=== PATIENT | female | born 1955 | race Caucasian/White ===

== ENCOUNTER → 2021-05-17 16:21 | Outpatient (BNVA) | payer MEDICARE, SELFPAY | PROVIDERS: Family Provider Family Medicine; PCP Family Medicine; Visit Provider Family Medicine | DX: Z13.9 Encounter for screening, unspecified (principal); H93.90 Unspecified disorder of ear, unspecified ear; R68.2 Dry mouth, unspecified | CPT/HCPCS: 36415; 85651; 86160; 86162; 86235; 86255; 86376 ==

== ENCOUNTER → 2022-07-02 17:33 | Outpatient (BNVA) | payer MEDICARE, SELFPAY | PROVIDERS: Family Provider Family Medicine; PCP Family Medicine; Visit Provider Nurse Practitioner Family | DX: M79.89 Other specified soft tissue disorders (principal); M10.9 Gout, unspecified | CPT/HCPCS: 84550 ==

== ENCOUNTER → 2022-07-04 14:14 | Outpatient (BNVA) | payer MEDICARE, SELFPAY | PROVIDERS: Family Provider Family Medicine; PCP Family Medicine; Visit Provider Nurse Practitioner Family | DX: M79.89 Other specified soft tissue disorders (principal) | CPT/HCPCS: 73630 ==

== ENCOUNTER 2024-03-14 08:28 | Observation (INO) | payer MEDICARE, SELFPAY ==
[2024-03-14] VITALS (17 sets, daily range): BP systolic 79–115; BP diastolic 35–76; PULSE 89–119; RESP 12–19; TEMP 36.4–36.8; O2SAT 98–100; BMI 21.6
--- NOTE | 2024-03-14 08:32 | ECG_ITS ---
[facility] Test Date: 2024-03-14 Pat Name: Melissa De Leon Department: Room: Gender: Female [employer]it [employer]s [employer]her: : 1955 Requested By: Sony Ulloa Order Number: [id number] Denisse MD: Tam Brar M.D. Measurements Intervals [place] Rate: 94 P: 91 CT: 136 QRS: 75 QRSD: 80 T: 81 QT: 345 QTc: 433 Interpretive Statements SINUS RHYTHM INDETERMINATE AXIS No previous ECG available for comparison Electronically Signed On 03-15-2024 12:23:27 CDT by Tam Brar M.D. [id number]
[2024-03-14 08:58] LABS: Basophils % 0.4 %; Eosinophils # 0.1 10^3/uL (0.0-0.8); Eosinophils % 0.7 %; Hematocrit 24.5 % (36-47); Lymphocytes # 2.4 10^3/uL (0.8-4.8); Lymphocytes % 25.6 %; Mean Corpuscular HGB Conc 33.9 g/dL (30-55); Mean Corpuscular Hemoglobin 31.1 pg (27-33); Mean Corpuscular Volume 91.8 fl (85-98); Mean Platelet Volume 9.7 fL (7.4-10.4); Monocytes # 0.7 10^3/uL (0.2-0.9); Monocytes % 7.2 %; Neutrophils # 6.15 10^3/uL (1.8-7.7); Neutrophils % 65.7 %; Nucleated Red Blood Cells % 0 %; Platelet Count 157 10^3/cmm (157-399); Red Blood Count 2.67 10^6/uL (3.85-5.65); Red Cell Distribution Width 14.5 % (12.1-15.1); White Blood Count 9.37 10^3/uL (3.29-11.43)
[2024-03-14 09:15] LABS: Alanine Aminotransferase 15 U/L (0-33); Albumin Level 3.7 g/dL (3.5-5.2); Alkaline Phosphatase 52 U/L (35-105); Anion Gap 14.5 (5-19); Aspartate Amino Transferase 17 U/L (0-32); Blood Urea Nitrogen 35 mg/dL (8-23); Calcium 8.7 mg/dL (8.5-10.5); Carbon Dioxide 20 mmol/L (22-29); Chloride 104 mmol/L (98-107); Creatinine Clr Calc Pharmacy 50.9601; Globulin 2.6 g/dL (1.3-4.6); Glucose 99 mg/dL (65-115); Osmolality Calculated 288 mOsm/kg (285-295); Potassium 3.5 mmol/L (3.5-5.1); Sodium 135 mmol/L (136-145); Total Bilirubin 0.6 mg/dL (0.15-1.2); Total Protein 6.3 g/dL (6.6-8.7)
--- NOTE | 2024-03-14 10:00 | PC.PHAR ---
PT STATES THE ONLY PRESCRIPTION MEDICATION SHE TAKES IS SUMATRIPTAN PRN-PT STATES SHE TAKES ALL THE OTC MEDS ENTERED -
--- NOTE | 2024-03-14 10:11 | ED_ITS ---
HPI - Dizziness 2 General: Chief Complaint: Dizziness Stated Complaint: dizzy Time Seen by Provider: 03/14/24 08:32 History of Present Illness: HPI Narrative: 68-year-old female who is only medical h istory is migraines who presents the emergency room with dizziness/lightheadedness for the last 2 days. She says yesterday she was extremely tired and could not go for a walk. She says she normally walks 5 hilly miles a day briskly and she could not. She says she gets so lightheaded when she stands up her 's and having to help her to the bathroom. She says she takes NSAIDs for her headaches quite frequently which would cause her to have upset stomach so she has been taking Pepto-Bismol which she thought might turn her stools black. She has been having black stools for few days now. No dysuria. No chest pain. Currently with no abdominal pain. No fevers. No cough. Blood pressure soft on presentation and Ortho's are positive. Review of Systems 2 Narrative: Constitutional symptoms: Negative except as documented in HPI. Skin symptoms: Negative except as documented in HPI. Eye symptoms: Negative except as documented in HPI. ENMT symptoms: Negative except as documented in HPI. Respiratory symptoms: Negative except as documented in HPI. Cardiovascular symptoms: Negative except as documented in HPI. Gastrointestinal symptoms: Negative except as documented in HPI. Genitourinary symptoms: Negative except as documented in HPI. Musculoskeletal symptoms: Negative except as documented in HPI. Neurologic symptoms: Negative except as documented in HPI. Psychiatric symptoms: Negative except as documented in HPI. Endocrine symptoms: Negative except as documented in HPI. PFSH ED 2 PFSH: Social History Smoking and tobacco/nicotine status: never used tobacco/nicotine Alcohol intake: current Alcohol intake frequency: holidays/special occasions only Current occupation: retired Physical Exam 2 Narrative: EXAM NARRATIVE: General: Alert, no acute distress. Skin: Warm, dry. Head: Normocephalic, atraumatic. Neck: Supple, trachea midline. Eye: Extraocular movements are intact. Ears, nose, mouth and throat: mucosa moist. Cardiovascular: Regular, Normal peripheral perfusion. Respiratory: Lungs are clear to auscultation, respirations are non-labored, breath sounds are equal, Symmetrical chest wall expansion. Gastrointestinal: Soft, Nontender, Non distended, Normal bowel sounds. Musculoskeletal: Normal ROM, no deformity. Neurological: Alert and oriented, No focal neurological deficit observed. Psychiatric: Cooperative, appropriate mood & affect. Course 2 Vital Signs: Vital signs: Vital Signs Temperature 97.9 F 03/14/24 08:35 Pulse Rate 89 03/14/24 09:27 Respiratory Rate 16 03/14/24 08:35 Blood Pressure 97/45 03/14/24 09:27 Pulse Oximetry 99 03/14/24 08:35 Oxygen Delivery Me thod Room Air 03/14/24 08:35 MDM - Dizziness Medical Decision Making Medical decision making: Differential diagnosis for patient presenting with generalized weakness including but not limited to and based on the above HPI, review of systems and physical exam: Sepsis. Dehydration. Renal failure. Electrolyte abnormalities. Anemia. Congestive heart failure. Hypotension. Coronary syndrome. Hepatitis. Cirrhosis. Infections such as pneumonia, urinary tract infection, Tick bourne illness, Cellulitis, Viral infections including influenza and Covid-19. Workup: labwork and lab/exam driven imaging ordered to evaluate, rule in and rule out above pathologies. EKG: Time 845 rate 94 normal sinus rhythm, No ST-T changes, no ectopy, normal MD & QRS intervals, This was reviewed and interpreted by ER physician at 849. Lab Review: Laboratory results were reviewed and interpreted by myself the emergency room physician. Patient has a hemoglobin of 8. BUN and creatinine are 35 and 1. This all points towards acute blood loss anemia and an upper GI bleed. Particularly given her history. She is quite symptomatic and although she is not under 7 at this point feel like she is lost likely a considerable amount of blood and 2 units of packed reds are being ordered. Consultation: General surgery: Dr. Tyler. Recommends TXA now and 1 hour. NPO. Agrees with Protonix. Transfusion. I reviewed the patient's medical record. Reexamination: Patient remains soft on her blood pressure. MAP just below 60. But is now being transfused. No increased work of breathing. No altered mental status. No focal motor deficits. Assessment and plan: Acute upper GI bleeding Acute blood loss anemia Hypotension NSAID use Likely peptic ulcer -1 L normal saline bolus secondary to hypotension -80 mg IV Protonix -2 units packed red blood cells -TXA being administered -General surgery consult for endoscopy -I discussed the patient with the hospitalist on-call who is admitting the patient. - Discussed findings and plan with patient. Answered any questions. - All laboratory values were reviewed and interpreted personally by myself, the ER physician - All imaging was reviewed and interpreted personally by myself, the ER physician. - Evaluation and treatment of this problem were appropriate in the emergency setting -I spent a total of >35 minutes of critical care time managing the patient, independent of any other practitioner. -The time involved in the performance of separately reportable procedures was not counted towards critical care time. Lab Data 03/14/24 08:52 03/14/24 08:52 Laboratory Results WBC 9.37 10^3/uL (3.29-11.43) 03/14/24 08:52 RBC 2.67 10^6/uL (3.85-5.65) L 03/14/24 08:52 Hgb 8.30 g/dL (11.27-16.99) L 03/14/24 08:52 Hct 24.5 % (36-47) L 03/14/24 08:52 MCV 91.8 fl (85-98) 03/14/24 08:52 MCH 31.1 pg (27-33) 03/14/24 08:52 MCHC 33.9 g/dL (30-55) 03/14/24 08:52 RDW 14.5 % (12.1-15.1) 03/14/24 08:52 Plt Count 157 10^3/cmm (157-399) 03/14/24 08:52 MPV 9.7 fL (7.4-10.4) 03/14/24 08:52 Neut % (Auto) 65.7 % 03/14/24 08:52 Lymph % (Auto) 25.6 % 03/14/24 08:52 [place] % (Auto) 7.2 % 03/14/24 08:52 Eos % (Auto) 0.7 % 03/14/24 08:52 Baso % (Auto) 0.4 % 03/14/24 08:52 Neut # (Auto) 6.15 10^3/uL (1.8-7.7) 03/14/24 08:52 Lymph # (Auto) 2.4 10^3/uL (0.8-4.8) 03/14/24 08:52 [place] # (Auto) 0.7 10^3/uL (0.2-0.9) 03/14/24 08:52 Eos # (Auto) 0.1 10^3/uL (0.0-0.8) 03/14/24 08:52 Baso # (Auto) 0.0 10^3/uL (0.0-0.1) 03/14/24 08:52 Nucleated RBC % (auto) 0 % 03/14/24 08:52 Nucleated RBCs # 0.0 /100WBC 03/14/24 08:52 PT 13.60 SECONDS (12.1-14.9) 03/14/24 10:48 INR 1.01 (0.8-1.2) 03/14/24 10:48 APTT 26.3 SECONDS (23.9-36.7) 03/14/24 10:48 Sodium 135 mmol/L (136-145) L 03/14/24 08:52 Potassium 3.5 mmol/L (3.5-5.1) 03/14/24 08:52 Chloride 104 mmol/L (98-107) 03/14/24 08:52 Carbon Dioxide 20 mmol/L (22-29) L 03/14/24 08:52 Anion Gap 14.5 (5-19) 03/14/24 08:52 BUN 35 mg/dL (8-23) H 03/14/24 08:52 Creatinine 0.7 mg/dL (0.5-0.9) 03/14/24 08:52 GFR Calculation 83.0 mL/min (90-130) L 03/14/24 08:52 Glucose 99 mg/dL (65-115) 03/14/24 08:52 Calculated Osmolality 288 mOsm/kg (285-295) 03/14/24 08:52 Lactic Acid 1.5 mmol/L (0.5-2.2) 03/14/24 10:48 Calcium 8.7 mg/dL (8.5-10.5) 03/14/24 08:52 Iron 87 ug/dL (37-145) 03/14/24 08:52 TIBC 243 mcg/dl 03/14/24 08:52 % Saturation 35.8 % (20-50) 03/14/24 08:52 Unsat Iron Binding 156 ug/dL (112-347) 03/14/24 08:52 Total Bilirubin 0.6 mg/dL (0.15-1.2) 03/14/24 08:52 AST 17 U/L (0-32) 03/14/24 08:52 ALT 15 U/L (0-33) 03/14/24 08:52 Alkaline Phosphatase 52 U/L (35-105) 03/14/24 08:52 Total Protein 6.3 g/dL (6.6-8.7) L 03/14/24 08:52 Albumin 3.7 g/dL (3.5-5.2) 03/14/24 08:52 Globulin 2.6 g/dL (1.3-4.6) 03/14/24 08:52 Blood Type O Negative 03/14/24 10:48 Rho(D) Type Rh negative 03/14/24 10:48 Antibody Screen Negative 03/14/24 10:48 Crossmatch See Detail 03/14/24 10:48 No radiology studies performed this visit Discharge Plan Discharge Patient Disposition: Admitted As Inpatient Clinical Impression: Acute upper GI bleeding, Acute blood loss anemia Condition: Stable Coding Level of Care Code ED [place] Rout[place] for Zeb Dempsey
[2024-03-14] MEDS: sodium chloride 0.9% 1,000 ML 999 ML IV (10:14)
[2024-03-14] MEDS: pantoprazole 40 mg SDV 80 MG IVP (11:03)
[2024-03-14 11:11] LABS: INR 1.01 (0.8-1.2); Partial Thromboplastin Time 26.3 SECONDS (23.9-36.7)
[2024-03-14 11:15] LABS: Lactic Sepsis W/Reflex 1.5 mmol/L (0.5-2.2)
[2024-03-14 11:47] LABS: Iron 87 ug/dL (37-145); Percent Saturation 35.8 % (20-50); Total Iron Binding Capacity 243 mcg/dl; Unsaturated Iron Binding 156 ug/dL (112-347)
[2024-03-14 12:02] LABS: Vitamin B12 638 pg/mL (232-1245)
[2024-03-14] MEDS: tranexamic acid 1,000 MG/100 ML PREMIX 600 MG IV ×2 (12:06→16:19)
[2024-03-14 12:20] LABS: Folate Level > 20.0 ng/mL (4.8-37.3)
[2024-03-14 13:32] LABS: Glucose Point of Care 92 mg/dL (70-110)
[2024-03-14 14:04] LABS: Specific Gravity, Urine 1.015 (1.005-1.030); Urine Appearance Clear (CLEAR); Urine Color Straw (Yellow); pH Urine 5 (5-7)
[2024-03-14 14:05] LABS: Add Urine Culture? No; Bacteria Urine TRACE /hpf; Bilirubin Urine Neg (Negative); Blood Urine Neg (Negative); Glucose Urine UA Norm (Normal); Ketones Urine 1+ (Negative); Leukocyte Esterase Urine Negative (Negative); Nitrate Urine Negative (Negative); Protein Urine Neg (Negative); Squamous Epithelial Cell Urine RARE /hpf (0-5); Urobilinogen Urine Norm (Negative); WBC Urine RARE /hpf (0-5)
--- NOTE | 2024-03-14 14:08 | P.HP_ITS ---
Providers/Chief Complaint 2 Admitting Physician: Mounika Dave MD Primary Care Provider: Albaro Marcano DO Chief Complaint: dizzy History of Present Illness Melissa De Leon is a 68 year old female who present to the hospital for dark melanotic stools. Previous hemoglobin was above 11, on this visit it is around 8.3 patient has been experiencing lightheadedness and dizziness no syncope chest pain shortness of breath or confusion. Patient takes Excedrin, ibuprofen for her joint migraine headaches. Patient stating that she was in her usual state of health, she went for hiking 2 days ago, last night she started getting dizzy and weak and started noticing dark-colored stools. She takes a lot of Excedrin for her migraine. Patient is stating that she probably took too many pills last week for her migraine. She tries to avoid taking sumatriptan. In the ER she has been given 1 unit PRBC, blood pressure improving with IV fluid hydration and blood transfusion. Dr. Tyler consulted, patient will stay on clear liquid diet, will keep n.p.o. after midnight for EGD tomorrow Patient also received Tranxene Eli acid Patient is denying any cardiac history, does not smoke, drinks occasionally Review of Systems 2 Const: Denies: fever(s) Eyes: Denies: change in vision ENMT: Denies: throat pain Card: Denies: chest pain Resp: Denies: dyspnea GI: Denies: abdominal pain : Denies: flank pain Musc: Denies: neck pain Medications/Allergies Home Medications Medication Instructions Recorded Confirmed Last Taken Type chjmfas-gtbdxhodekils-afetutwj 250 1 tab PO BID PRN Migraine Headache 05/17/21 03/14/24 Unknown History mg-250 mg-65 mg tablet (Excedrin Migraine) ibuprofen 200 mg tablet (Advil) 100 mg PO Q6H PRN Pain 05/17/21 03/14/24 Unknown History multivitamin 1 tab PO DAILY 05/19/21 03/14/24 Unknown History glucosamine sulfate 500 mg tablet 500 mg PO EVERY OTHER DAY 02/05/22 03/14/24 Unknown History sumatriptan succinate 50 mg tablet 50 mg PO Q2H PRN migraine headache 06/24/23 03/14/24 03/09/24 Rx #20 tabs Vitex Caps 1 cap PO DAILY 03/14/24 03/14/24 Unknown History Wild Yam Root 1 cap PO EVERY OTHER DAY 03/14/24 03/14/24 Unknown History bismuth subsalicylate 262 mg/15 mL 262 mg PO TID PRN UPSET STOMACH 03/14/24 03/14/24 Unknown History oral suspension (Pepto-Bismol) calcium carb 333 mg-vit D3 133 1 tab PO DAILY 03/14/24 03/14/24 Unknown History unit-mag ox 133 mg-zinc oxide 5 mg tab (Cuco Mag Zinc Plus D3) garlic 500 mg capsule 500 mg PO DAILY 03/14/24 03/14/24 Unknown History omega-3 fatty acids-fish oil 684 1 cap PO DAILY 03/14/24 03/14/24 Unknown History mg-1,200 mg capsule,delayed release turmeric 400 mg capsule 400 mg PO EVERY OTHER DAY 03/14/24 03/14/24 Unknown History valerian root 500 mg capsule 500 mg PO DAILY PRN STRESS 03/14/24 03/14/24 Unknown History Allergies Allergy/AdvReac Type Severity Reaction Status Date / Time Penicillins Allergy Intermediate rash Verified 03/14/24 09:59 tramadol AdvReac Severe ADR-Vomitin Verified 03/14/24 09:59 g codeine AdvReac Intermediate anxiety Verified 03/14/24 09:59 PFSH Acute 2 PFSH: Medical History (Updated 03/14/24 @ 15:54 by Mounika Dave MD) Bursitis, olecranon Abscess of left olecranon bursa Puncture wound of thumb Toe pain, left Gout Swelling of toe of left foot Poor dental hygiene Migraine aura occurring with and without headache Dermatitis contact, eyelid Menopausal and female climacteric states Oral dryness Screening due Dental abscess Sinusitis, acute Surgical History (Updated 03/14/24 @ 15:54 by Mounika Dave MD) History of D&C H/O sinus surgery left Social History Smoking and tobacco/nicotine status: never used tobacco/nicotine Alcohol intake: current Alcohol intake frequency: holidays/special occasions only Current occupation: retired Vitals/I&O/Wt Last Vital Signs Temp 97.6 F 03/14/24 12:31 Pulse 92 03/14/24 14:00 Resp 15 03/14/24 14:00 BP 98/38 03/14/24 14:00 Pulse Ox 99 03/14/24 14:00 O2 Del Method Room Air 03/14/24 12:00 03/13/24 03/14/24 03/14/24 22:59 06:59 14:59 Intake Total 1000 / 1000 Balance 1000 / 1000 Weight last 48 hrs Weight 49.895 kg Physical Exam 2 Narrative: Hemodynamically stable S1, S2 Pleasant and cooperative GCS 15 Euvolemic Nonfocal exam Appears stated age at the bedside Data 03/14/24 08:52 03/14/24 08:52 Micro: Microbiology 03/14/24 10:48 Blood Culture - Preliminary Blood SPECIMEN COLLECTED 03/14/24 10:48 Blood Culture - Preliminary Blood SPECIMEN COLLECTED A&P Assessment and plan (1) Acute upper GI bleeding: (2) Acute blood loss anemia: Plan Upper GI bleed with hypotension Melanotic stool Hemoglobin 8.3: Hypotensive:-Improved with IV fluids and PRBC Will request 1 unit PRBC Blood pressure improved, will admit to MedSurg Start Protonix 40 mg IV twice daily Sucralfate Will need an EGD Will consult Dr. Tyler N.p.o. after midnight Will keep on clear liquid diet Add Protonix and sucralfate Attestations 2 Medical Necessity Statement*: Likely will need less than 2 midnights in the hospital for further evaluation Diagnoses Acute upper GI bleeding K92.2 Acute blood loss anemia D62
[2024-03-14] MEDS: sodium chloride 0.9% 1,000 ML 30 ML IV (16:28)
[2024-03-14 16:37] LABS: Estmated Average Glucose 100; Hemoglobin A1C 5.1 % (4.0-6.0)
[2024-03-14] MEDS: sucralfate 1 gm Tablet PO ×2 (17:38→20:28)
[2024-03-14] MEDS: pantoprazole 40 mg SDV IVP (18:50)
[2024-03-15 00:03] VITALS: BP 100/58; PULSE 89; RESP 18; TEMP 36.5; O2SAT 97
[2024-03-15 04:00] VITALS: BP 105/55; PULSE 93; RESP 18; TEMP 36.6; O2SAT 97
[2024-03-15] MEDS: sucralfate 1 gm Tablet PO ×2 (06:23→12:14)
[2024-03-15 06:35] LABS: Basophils # 0.1 10^3/uL (0.0-0.1); Basophils % 0.7 %; Eosinophils # 0.2 10^3/uL (0.0-0.8); Eosinophils % 2.4 %; Hematocrit 32.6 % (36-47); Lymphocytes # 2.4 10^3/uL (0.8-4.8); Lymphocytes % 26.4 %; Mean Corpuscular HGB Conc 35.3 g/dL (30-55); Mean Corpuscular Volume 87.9 fl (85-98); Monocytes # 0.8 10^3/uL (0.2-0.9); Monocytes % 8.5 %; Neutrophils # 5.63 10^3/uL (1.8-7.7); Neutrophils % 61.2 %; Nucleated Red Blood Cells % 0 %; Platelet Count 138 10^3/cmm (157-399); Red Blood Count 3.71 10^6/uL (3.85-5.65); Red Cell Distribution Width 14.9 % (12.1-15.1); White Blood Count 9.19 10^3/uL (3.29-11.43)
--- NOTE | 2024-03-15 06:51 | PM.DCS ---
Discharge Providers Date of Admission: 03/14/24 11:55 Date of Discharge: March 15, 2024 Attending Provider at Admission: Mounika Dave MD Attending Provider at Discharge: Mounika Dave MD Primary Care Provider: Albaro Marcano DO Diagnoses at Discharge Discharge Diagnosis (1) Acute upper GI bleeding: Status: Inactive (2) Acute blood loss anemia: Status: Inactive Reason for Visit Reason for Visit: dizzy Hospital Course Hospital Course 68-year female who presented to hospital for melanotic stools, feeling generalized weakness and fatigue, otherwise she is active, she was given 1 unit PRBC for her hypertension in the ER her blood pressure improved she was transferred to [facility] [place], Dr. Tyler was consulted for an EGD, she remained hemodynamic stable, I have counseled patient not to take too much Excedrin, avoid ibuprofen and aspirin. I have put her on Protonix and sucralfate Dr. Tyler recommended outpatient endoscopy. Physical Exam Narrative: Pleasant well-appearing This is 50 Nonfocal neuroexam S1, S2 Hemodynamic stable Discharge Data Studies Completed and Pending Pending at discharge Category Date Time Status Basic Metabolic Panel AM LABS Lab 03/15/24 06:03 Received Blood Culture Stat Lab 03/14/24 10:48 Results Magnesium AM LABS Lab 03/15/24 06:03 Received PHOS [Phosphorus] AM LABS Lab 03/15/24 06:03 Received Laboratory Results WBC 9.19 10^3/uL (3.29-11.43) 03/15/24 06:03 RBC 3.71 10^6/uL (3.85-5.65) L 03/15/24 06:03 Hgb 11.50 g/dL (11.27-16.99) D 03/15/24 06:03 Hct 32.6 % (36-47) L D 03/15/24 06:03 MCV 87.9 fl (85-98) 03/15/24 06:03 MCH 31.0 pg (27-33) 03/15/24 06:03 MCHC 35.3 g/dL (30-55) 03/15/24 06:03 RDW 14.9 % (12.1-15.1) 03/15/24 06:03 Plt Count 138 10^3/cmm (157-399) L 03/15/24 06:03 MPV 10.0 fL (7.4-10.4) 03/15/24 06:03 Neut % (Auto) 61.2 % 03/15/24 06:03 Lymph % (Auto) 26.4 % 03/15/24 06:03 [place] % (Auto) 8.5 % 03/15/24 06:03 Eos % (Auto) 2.4 % 03/15/24 06:03 Baso % (Auto) 0.7 % 03/15/24 06:03 Neut # (Auto) 5.63 10^3/uL (1.8-7.7) 03/15/24 06:03 Lymph # (Auto) 2.4 10^3/uL (0.8-4.8) 03/15/24 06:03 [place] # (Auto) 0.8 10^3/uL (0.2-0.9) 03/15/24 06:03 Eos # (Auto) 0.2 10^3/uL (0.0-0.8) 03/15/24 06:03 Baso # (Auto) 0.1 10^3/uL (0.0-0.1) 03/15/24 06:03 Nucleated RBC % (auto) 0 % 03/15/24 06:03 Nucleated RBCs # 0.0 /100WBC 03/15/24 06:03 PT 13.60 SECONDS (12.1-14.9) 03/14/24 10:48 INR 1.01 (0.8-1.2) 03/14/24 10:48 APTT 26.3 SECONDS (23.9-36.7) 03/14/24 10:48 Sodium 135 mmol/L (136-145) L 03/14/24 08:52 Potassium 3.5 mmol/L (3.5-5.1) 03/14/24 08:52 Chloride 104 mmol/L (98-107) 03/14/24 08:52 Carbon Dioxide 20 mmol/L (22-29) L 03/14/24 08:52 Anion Gap 14.5 (5-19) 03/14/24 08:52 BUN 35 mg/dL (8-23) H 03/14/24 08:52 Creatinine 0.7 mg/dL (0.5-0.9) 03/14/24 08:52 GFR Calculation 83.0 mL/min (90-130) L 03/14/24 08:52 Glucose 99 mg/dL (65-115) 03/14/24 08:52 POC Glucose 92 mg/dL (70-110) 03/14/24 12:56 Estimat Average Glucose 100 03/14/24 08:52 Hemoglobin A1c 5.1 % (4.0-6.0) 03/14/24 08:52 Calculated Osmolality 288 mOsm/kg (285-295) 03/14/24 08:52 Lactic Acid 1.5 mmol/L (0.5-2.2) 03/14/24 10:48 Calcium 8.7 mg/dL (8.5-10.5) 03/14/24 08:52 Iron 87 ug/dL (37-145) 03/14/24 08:52 TIBC 243 mcg/dl 03/14/24 08:52 % Saturation 35.8 % (20-50) 03/14/24 08:52 Unsat Iron Binding 156 ug/dL (112-347) 03/14/24 08:52 Total Bilirubin 0.6 mg/dL (0.15-1.2) 03/14/24 08:52 AST 17 U/L (0-32) 03/14/24 08:52 ALT 15 U/L (0-33) 03/14/24 08:52 Alkaline Phosphatase 52 U/L (35-105) 03/14/24 08:52 Total Protein 6.3 g/dL (6.6-8.7) L 03/14/24 08:52 Albumin 3.7 g/dL (3.5-5.2) 03/14/24 08:52 Globulin 2.6 g/dL (1.3-4.6) 03/14/24 08:52 Vitamin B12 638 pg/mL (232-1245) 03/14/24 08:52 Vitamin B12 Cancelled 03/14/24 08:52 Folate > 20.0 ng/mL (4.8-37.3) 03/14/24 08:52 Urine Color Straw (Yellow) 03/14/24 13:00 Urine Appearance Clear (CLEAR) 03/14/24 13:00 Urine pH 5 (5-7) 03/14/24 13:00 Ur Specific [place] 1.015 (1.005-1.030) 03/14/24 13:00 Urine Protein Neg (Negative) 03/14/24 13:00 Urine Glucose (UA) Norm (Normal) 03/14/24 13:00 Urine Ketones 1+ (Negative) H 03/14/24 13:00 Urine Blood Neg (Negative) 03/14/24 13:00 Urine Nitrate Negative (Negative) 03/14/24 13:00 Urine Bilirubin Neg (Negative) 03/14/24 13:00 Urine Urobilinogen Norm mg/dL (Negative) 03/14/24 13:00 Ur Leukocyte Esterase Negative (Negative) 03/14/24 13:00 Urine RBC None /hpf (0-2) 03/14/24 13:00 Urine WBC Rare /hpf (0-5) 03/14/24 13:00 Ur Squamous Epith Cells Rare /hpf (0-5) 03/14/24 13:00 Amorphous Sediment Not Reportable 03/14/24 13:00 Urine Bacteria Trace /hpf (NONE) 03/14/24 13:00 Blood Type O Negative 03/14/24 10:48 Rho(D) Type Rh negative 03/14/24 10:48 Antibody Screen Negative 03/14/24 10:48 Crossmatch See Detail 03/14/24 10:48 Vitals Last Vital Signs Temp 97.8 F 03/15/24 04:00 Pulse 93 03/15/24 04:00 Resp 18 03/15/24 04:00 BP 105/55 03/15/24 04:00 Pulse Ox 97 03/15/24 04:00 O2 Del Method Room Air 03/14/24 19:43 Discharge Plan Discharge Patient Disposition: Home Condition: Stable Prescriptions: New sucralfate 1 gram Tablet 1 g PO AC&BEDTIME Qty: 60 0RF pantoprazole 40 mg tablet,delayed release (DR/EC) 40 mg PO BID 42 Days Qty: 84 1RF Continued Excedrin Migraine 250-250-65 mg tablet 1 tab PO BID PRN (Reason: Migraine Headache) multivitamin Tablet 1 tab PO DAILY glucosamine sulfate 500 mg tablet 500 mg PO EVERY OTHER DAY Rx Instructions: administer with a meal sumatriptan succinate 50 mg tablet 50 mg PO Q2H PRN (Reason: migraine headache) Qty: 20 1RF Rx Instructions: do not exceed 4 doses per 24 hrs valerian root 500 mg Capsule 500 mg PO DAILY PRN (Reason: STRESS) garlic 500 mg Capsule 500 mg PO DAILY Pepto-Bismol 262 mg/15 mL Suspension 262 mg PO TID PRN (Reason: UPSET STOMACH) omega-3 fatty acids-fish oil 684-1,200 mg Capsule,Delayed Release(Dr/Ec) 1 cap PO DAILY Cuco Mag Zinc Plus D3 333 mg-133 unit -133 mg-5 mg Tablet 1 tab PO DAILY turmeric 400 mg Capsule 400 mg PO EVERY OTHER DAY Vitex Caps 1 cap PO DAILY Wild Yam Root 1 cap PO EVERY OTHER DAY Discontinued ibuprofen [Advil] 200 mg tablet 100 mg PO Q6H PRN (Reason: Pain) Discharge Orders: Discharge Order (Routine); Ordered 03/15/24 Ordered By: Sendy Marinelli Referrals: Brock Tyler DO [Physician] - 1 week Albaro Marcano DO [Primary Care Provider] - 4-7 days Discharge Diet: As Directed Patient Instructions: [place] Diet - Adult, Sucralfate (By mouth), Pantoprazole (By mouth), Opioid Safety Activity Restrictions/Additional Instructions: [place] diet. Please follow with Dr. Tyler outpatient to schedule your colonoscopy and EGD. Discharge Attestations Time Spent in Discharge Care*: less than 30 min Quality Metrics Clinical Quality Measures [ No reported AMI, CVA or VTE this stay] Coding Level of Care Code Acute Code for Chg Fwd Diagnoses Acute upper GI bleeding K92.2 Acute blood loss anemia D62
[2024-03-15 06:54] LABS: Anion Gap 16.7 (5-19); Blood Urea Nitrogen 15 mg/dL (8-23); Calcium 8.5 mg/dL (8.5-10.5); Carbon Dioxide 18 mmol/L (22-29); Chloride 111 mmol/L (98-107); Creatinine Clr Calc Pharmacy 51.3025; Glucose 95 mg/dL (65-115); Osmolality Calculated 295 mOsm/kg (285-295); Phosphorus 2.4 mg/dL (2.5-4.5); Potassium 3.7 mmol/L (3.5-5.1); Sodium 142 mmol/L (136-145)
[2024-03-15 07:56] VITALS: BP 112/67; PULSE 85; RESP 17; TEMP 36.8; O2SAT 98
[2024-03-15] MEDS: pantoprazole 40 mg SDV IVP (10:07)
[2024-03-15 12:32] VITALS: BP 115/70; PULSE 92; RESP 18; TEMP 36.6; O2SAT 98
--- NOTE | 2024-03-15 13:14 | P.CONIM_ITS ---
Providers/Reason For Consult 2 Consulting Physician/Specialty*: Dr. Brock Tyler DO/General surgery Reason for Consult*: GI bleed Attending Physician: Mounika Dave MD Primary Care Provider: Alabro Marcano DO History of Present Illness History of Present Illness Melissa De Leon is a 68 year old female who presented to the hospital with a 2-day history of weakness and black tarry stools. She denies any significant abdominal pain. She reports that she does not get any heartburn or take any medication for heartburns. Her grandfather had colon cancer but she has never had a colonoscopy. Her main complaint was weakness. She denies any fall or hitting her head. Denies any nausea or vomiting. Denies any history of recent travel or the possibility of eating bad food. She has not had a bowel movement since earlier yesterday. Review of Systems 2 General: Reports: 10 or more systems reviewed and unremarkable except in HPI and below Medications/Allergies Home Medications Medication Instructions Recorded Confirmed Last Taken Type [id number] 250 1 tab PO BID PRN Migraine Headache 05/17/21 03/14/24 Unknown History mg-250 mg-65 mg tablet (Excedrin Migraine) ibuprofen 200 mg tablet (Advil) 100 mg PO Q6H PRN Pain 05/17/21 03/14/24 Unknown History multivitamin 1 tab PO DAILY 05/19/21 03/14/24 Unknown History glucosamine sulfate 500 mg tablet 500 mg PO EVERY OTHER DAY 02/05/22 03/14/24 Unknown History sumatriptan succinate 50 mg tablet 50 mg PO Q2H PRN migraine headache 06/24/23 03/14/24 03/09/24 Rx #20 tabs Vitex Caps 1 cap PO DAILY 03/14/24 03/14/24 Unknown History Wild Yam Root 1 cap PO EVERY OTHER DAY 03/14/24 03/14/24 Unknown History bismuth subsalicylate 262 mg/15 mL 262 mg PO TID PRN UPSET STOMACH 03/14/24 03/14/24 Unknown History oral suspension (Pepto-Bismol) calcium carb 333 mg-vit D3 133 1 tab PO DAILY 03/14/24 03/14/24 Unknown History unit-mag ox 133 mg-zinc oxide 5 mg tab (Cuco Mag Zinc Plus D3) garlic 500 mg capsule 500 mg PO DAILY 03/14/24 03/14/24 Unknown History omega-3 fatty acids-fish oil 684 1 cap PO DAILY 03/14/24 03/14/24 Unknown History mg-1,200 mg capsule,delayed release turmeric 400 mg capsule 400 mg PO EVERY OTHER DAY 03/14/24 03/14/24 Unknown History valerian root 500 mg capsule 500 mg PO DAILY PRN STRESS 03/14/24 03/14/24 Unknown History Allergies Allergy/AdvReac Type Severity Reaction Status Date / Time Penicillins Allergy Intermediate rash Verified 03/14/24 09:59 tramadol AdvReac Severe ADR-Vomitin Verified 03/14/24 09:59 g codeine AdvReac Intermediate anxiety Verified 03/14/24 09:59 Current Medications Generic Name Dose Route Start Last Admin Trade Name Freq PRN Reason Stop Dose Admin Sodium Chloride 1,000 mls @ 30 mls/hr 03/14/24 16:00 03/14/24 16:28 Sodium Chloride 0.9% IV 30 mls/hr .Q24H DAVID Administration Pantoprazole Sodium 40 mg 03/14/24 18:00 03/15/24 10:07 Pantoprazole 40 Mg Sdv IVP 40 mg BID DAVID Administration Sucralfate 1 gm 03/14/24 17:00 03/15/24 12:14 Sucralfate 1 Gm Tablet PO 1 gm AC&BEDTIME DAVID Administration PFSH Acute 2 PFSH: Medical History Bursitis, olecranon Abscess of left olecranon bursa Puncture wound of thumb Toe pain, left Gout Swelling of toe of left foot Poor dental hygiene Migraine aura occurring with and without headache Dermatitis contact, eyelid Menopausal and female climacteric states Oral dryness Screening due Dental abscess Sinusitis, acute Surgical History History of D&C H/O sinus surgery left Social History Smoking and tobacco/nicotine status: never used tobacco/nicotine Alcohol intake: current Alcohol intake frequency: holidays/special occasions only Current occupation: retired Vitals/I&O/Wt Last Vital Signs Temp 98 F 05/05/24 12:32 Pulse 92 03/15/24 12:32 Resp 18 03/15/24 12:32 BP 115/70 03/15/24 12:32 Pulse Ox 98 03/15/24 12:32 O2 Del Method Room Air 03/15/24 12:32 03/14/24 03/15/24 03/15/24 22:59 06:59 14:59 Intake Total 900 / 1900 0 / 1900 Output Total 500 / 500 Balance 900 / 1900 -500 / 1400 Weight last 48 hrs Weight 111 lb 12.8 oz Weight 114 lb 8 oz Weight 110 lb Physical Exam 2 Narrative: General : Patient is well developed , no acute distress, oriented x3 Head : Normal cephalic, a-traumatic. Ears : Pinnae and external canal are normal. Hearing is normal. Eyes : PERRLA, Sclera and injection are normal. No conjunctival discharge. Nose : Mucous membranes are without erythema. Throat : buccal mucosa is normal, gums are without significant recession or hypertrophy. Lungs : Equal chest rise bilaterally, no use of accessory muscles, trachea is midline. Cor : Rate and rhythm are normal. Abdomen : Soft, ND, NT, no g/r/m Extremities : No edema, no cyanosis or clubbing, dorsalis pedis pulses are present bilaterally, non-tender to palpation of calves. Upper extremities are normal bilaterally. Back : non-tender to palpation, no CVA tenderness. Neuro : CN II - XII intact, Upper and lower extremities have equal and full strength Data 03/15/24 06:03 03/15/24 06:03 Micro: Microbiology 03/14/24 10:48 Blood Culture - Preliminary Blood NEGATIVE TO DATE 03/14/24 10:48 Blood Culture - Preliminary Blood NEGATIVE TO DATE A&P Assessment and plan (1) Acute upper GI bleeding: (2) Family history of colon cancer: Plan She needs an EGD to investigate the source of her melena. Importantly, she also needs a colonoscopy because she has never had 1 and has a family history of colon cancer. I offered her an EGD today but we would not be able to do a colonoscopy until tomorrow because her colon is not prepped. She elected to get a diet as she is very hungry and pursue EGD and colonoscopy as an outpatient. She was discharged with 6 weeks of 40 mg Protonix twice daily with 1 refill and sucralfate twice daily for 4 weeks along with a follow-up with me. [place] diet Medical management per hospitalist Surgically stable for discharge Coding Level of Care Code 03063 Diagnoses Acute upper GI bleeding K92.2 Family history of colon cancer Z80.0
== END 2024-03-15 14:10 | disposition home or self-care (01) ==
LOC: ER 11:54 → MEDSURG 18:20
PROVIDERS: Family Medicine; Admitting Provider Internal Medicine; Emergency Provider Emergency Medicine; PCP Family Medicine; Visit Provider Internal Medicine
DX: K92.2 Gastrointestinal hemorrhage, unspecified (principal); D62 Acute posthemorrhagic anemia; Z80.0 Family history of malignant neoplasm of digestive organs; I95.9 Hypotension, unspecified
CPT/HCPCS: 36415; 36416; 36430; 80048; 80053; 81001; 82607; 82746; 82962; 83036; 83540; 83550; 83605; 83735; 84100; 85025; 85610; 85730; 86850; 86900; 86920; 87040; 93005; 96374; 96375; 96376; 99285; C9113; G0378; J7030; P9016

== ENCOUNTER → 2024-03-30 10:39 | Outpatient (BNVA) | payer MEDICARE, SELFPAY | PROVIDERS: PCP Family Medicine; Visit Provider Surgery | DX: Z09 Encounter for follow-up examination after completed treatment for conditions other than malignant neoplasm (principal); K92.2 Gastrointestinal hemorrhage, unspecified | CPT/HCPCS: 99204 ==

== ENCOUNTER → 2025-04-08 14:45 | Outpatient (BNVA) | payer MEDICARE, SELFPAY | PROVIDERS: PCP Family Medicine; Visit Provider Family Medicine | DX: K21.00 Gastro-esophageal reflux disease with esophagitis, without bleeding (principal); M81.0 Age-related osteoporosis without current pathological fracture; E55.9 Vitamin D deficiency, unspecified | CPT/HCPCS: 80053; 82306; 85027 ==

== ENCOUNTER → 2025-05-31 10:00 | Outpatient (BNVA) | payer MEDICARE, SELFPAY | PROVIDERS: PCP Family Medicine; Visit Provider Family Medicine | DX: R79.89 Other specified abnormal findings of blood chemistry (principal); K21.00 Gastro-esophageal reflux disease with esophagitis, without bleeding; D64.9 Anemia, unspecified; K92.2 Gastrointestinal hemorrhage, unspecified | CPT/HCPCS: 82607; 82728; 82746; 83550; 85014; 85018; 85045 ==